=== PATIENT | male | born 1955 | race Caucasian/White ===

== ENCOUNTER → 2018-01-06 | Outpatient (CLI) | payer OTHER ==
[2018-01-06 18:21] LABS: ALBUMIN 4.3 GM/DL (3.2-5.2); ALBUMIN/GLOBULIN RATIO 1.34 (1.00-1.93); ALKALINE PHOSPHATASE 72 U/L (45-117); ALT/SGPT 37 U/L (12-78); ANION GAP 9 MEQ/L (8-16); AST/SGOT 24 U/L (7-37); BILIRUBIN,TOTAL 0.8 MG/DL (0.2-1.0); BLOOD UREA NITROGEN 17 MG/DL (7-18); C REACTIVE PROTEIN QUANTITATIV 6.12 MG/DL (0.00-0.30); CALCIUM LEVEL 9.3 MG/DL (8.8-10.2); CARBON DIOXIDE LEVEL 30 MEQ/L (21-32); CHLORIDE LEVEL 101 MEQ/L (98-107); GLOMERULAR FILTRATION RATE > 60.0 (>49); GLUCOSE, FASTING 93 MG/DL (70-100); POTASSIUM SERUM 4.4 MEQ/L (3.5-5.1); SODIUM LEVEL 140 MEQ/L (136-145); TOTAL PROTEIN 7.5 GM/DL (6.4-8.2)
[2018-01-06 18:47] LABS: BASO % 0.5 % (0.0-1.0); EOS # 0.1 10^3/uL (0.0-0.50); EOS % 0.8 % (0.0-3.0); HEMATOCRIT 46.8 % (42.0-52.0); HEMOGLOBIN 15.3 g/dl (13.5-17.5); IMMATURE GRANULOCYTE % 0.3 % (0-3.0); LYMPH # 1.3 10^3/uL (1.5-4.5); MEAN CORPUSCULAR HEMOGLOBIN 30.1 pg (27.0-33.0); MEAN CORPUSCULAR HGB CONC 32.7 g/dl (32.0-36.5); MEAN CORPUSCULAR VOLUME 92.1 fl (80.0-96.0); MONO % 12.5 % (0.0-5.0); NEUTROPHILS # 5.5 10^3/uL (1.8-7.7); NEUTROPHILS % 69.9 % (36.0-66.0); PLATELET COUNT, AUTOMATED 185 10^3/uL (150-450); RED BLOOD COUNT 5.08 10^6/uL (4.30-6.10); WHITE BLOOD COUNT 7.8 10^3/uL (4.0-10.0)
[2018-01-06 19:38] LABS: ERYTHROCYTE SEDIMENTATION RATE 3 mm/hr (0-20)
== END ==
LOC: M WUC 10:23
DX: R50.9 Fever, unspecified (principal); R21 Rash and other nonspecific skin eruption
CPT/HCPCS: 80053

== ENCOUNTER → 2018-01-14 | Outpatient (CLI) | payer OTHER ==
[2018-01-17 17:40] LABS: Lyme Disease IgG Ab 18 kDa Ban Absent (.); Lyme Disease IgG Ab 23 kDa Ban Absent (.); Lyme Disease IgG Ab 28 kDa Ban Absent (.); Lyme Disease IgG Ab 30 kDa Ban Absent (.); Lyme Disease IgG Ab 39 kDa Ban Absent (.); Lyme Disease IgG Ab 41 kDa Ban Present (.); Lyme Disease IgG Ab 45 kDa Ban Absent (.); Lyme Disease IgG Ab 58 kDa Ban Absent (.); Lyme Disease IgG Ab 66 kDa Ban Absent (.); Lyme Disease IgG Ab 93 kDa Ban Absent (.); Lyme Disease IgG West Blot Int Negative (.); Lyme Disease IgM Ab 23 kDa Ban Present (.); Lyme Disease IgM Ab 39 kDa Ban Absent (.); Lyme Disease IgM Ab 41 kDa Ban Present (.); Lyme Disease IgM Ab Quantitati 3.21 index (0.00-0.79); Lyme Disease IgM West Blot Int Positive (.)
[2018-01-17 17:40] LABS: Lyme Disease IgG/IgM Antibodie 0.92 ISR (0.00-0.90)
== END ==
LOC: M WUC 15:54
DX: R50.9 Fever, unspecified (principal); R21 Rash and other nonspecific skin eruption
CPT/HCPCS: 36415

== ENCOUNTER → 2020-12-15 | Outpatient (REF) | payer MEDICARE | LOC: M SMT 08:56 | PROVIDERS: ATTEND Urology | DX: R97.20 Elevated prostate specific antigen [PSA] (principal) | CPT/HCPCS: 55700; 76942; G0416 ==

== ENCOUNTER → 2021-01-27 | Outpatient (CLI) | payer MEDICARE ==
[~2021-01-27] MED LIST: ACET-683 PO; AMLO1TAB24 PO; ATOR1TAB19 PO; CASO50TA5 PO; D31000TA2 PO; DOXA1TAB41 PO; DOXA2TAB3 PO; HYDR-3490 PO; ISOVUE-370 76% 100ML VIAL As Ordered ONE; KP F1200 PO; ONETAB9 PO; OXYB5TAB10 PO
--- NOTE | 2021-01-27 11:33 | REP ---
INDICATION: PROSTATE CA COMPARISON: None. TECHNIQUE: Standard helical technique after the intravenous administration of 100 cc Isovue 370 FINDINGS: There is no mediastinal or hilar adenopathy. There are no pleural or pericardial effusions. The bone window technique throughout the examination shows multiple tiny focal areas of increased bony density. Evaluation of the lung browne shows a 6 mm sized pleural base nodule in the right lower lobe. There is a 6 mm size nodule which is intra fissural in the left lower lung zone between the antral basal segment of the left lower lobe and the inferior lingula. Within the inferior lingula there is a 4 mm size nodule. IMPRESSION: 1. Multiple lung nodules as described above. Since the patient has a known malignancy short-term follow-up is suggested. There is no revised Fleischner society criteria on the recommendation for follow-up of such nodules in patients with known malignancies. 2. Evidence of tiny blastic osseous foci as described above. 3. All interested parties reviewing this report should also review the report from the CT examination of the abdomen and pelvis obtained at the same time. <Electronically signed by Manny Redmond > 01/27/21 [id number]
== END ==
LOC: M RAD 09:56
PROVIDERS: ATTEND Internal Medicine Medical Oncology
DX: C61 Malignant neoplasm of prostate (principal); R91.8 Other nonspecific abnormal finding of lung field
CPT/HCPCS: 71260; Q9967

== ENCOUNTER → 2021-01-27 | Outpatient (CLI) | payer MEDICARE, OTHER ==
[~2021-01-27] MED LIST changes: -ISOVUE-370 76% 100ML VIAL As Ordered ONE
--- NOTE | 2021-01-27 11:15 | REP ---
INDICATION: PROSTATE CA. COMPARISON: None. TECHNIQUE: Standard helical technique after the intravenous administration of 100 cc Isovue 370. No oral bowel preparatory contrast was administered prior to the exam. FINDINGS: The liver, gallbladder, spleen, pancreas, adrenal glands, and right kidney are within normal limits. There is severe left-sided hydronephrosis and hydroureter. There are no nephroliths or definite ureteroliths. Bilateral pelvic phleboliths are noted. A tiny calcification is seen abutting the posterior wall of the distal ureter. There is evidence of increased soft tissue density in the left ureterovesical junction. There are no urinary bladder calcifications. There is no evidence of free fluid or free air. The bowel loops and the mesenteries are within normal limits. Bone window technique throughout the exam shows multiple tiny focal areas of increased bony density throughout the pelvis and lumbar spine. IMPRESSION: 1. Severe left-sided hydronephrosis as described above. There is a suspicious finding of increased density seen along the floor of the urinary bladder particularly in the region of the left ureterovesical junction. A tumor cannot be ruled out. 2. 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 Correlation with bone scintigraphy should be considered. 3. Other findings as described above. <Electronically signed by Manny Redmond > 01/27/21 1111
== END ==
LOC: M RAD 09:51
PROVIDERS: ATTEND Urology
DX: C61 Malignant neoplasm of prostate (principal); N13.30 Unspecified hydronephrosis

== ENCOUNTER → 2021-02-01 | Outpatient (CLI) | payer MEDICARE ==
--- NOTE | 2021-02-01 15:01 | REP ---
INDICATION: PROSTATE CA. COMPARISON: None. TECHNIQUE/RADIOTRACER AND DOSE: After the intravenous administration of 22 mCi of technetium 99 M MDP a total body bone scan was obtained. FINDINGS: There is patchy increased activity seen in the shoulders. There is degenerative type activity seen in the knees right greater than left. Degenerative type uptake patterns are seen in the ankles and feet. There is focal activity in the anterior right 6th rib. There is focal activity seen in the left 5th rib. There is focal activity seen in the posterior left hemipelvis. There is focal activity seen in the left anterior hip. There is focal activity seen in the region of the pedicle of L5 on the right and L2 on the left. IMPRESSION: Multiple areas of abnormal focal activity, as described above, consistent with metastatic disease. Other areas of patchy uptake and degenerative uptake are consistent with degenerative changes. Follow-up, however, is suggested. <Electronically signed by Manny Redmond > 02/01/21 4253
== END ==
LOC: M RAD 10:33
PROVIDERS: ATTEND Urology
DX: C61 Malignant neoplasm of prostate (principal)
CPT/HCPCS: 78306; A9503

== ENCOUNTER → 2021-04-06 | Outpatient (CLI) | payer MEDICARE ==
[~2021-04-06] MED LIST changes: +ASPI-1 PO; +ASPI81CH33 PO; +BERBERINE PO; +PRED5TA PO; +PYRI1TAB5 PO; +XTAN40CA PO; +ZYTI250T PO
== END ==
LOC: M LABSMTC 10:08
PROVIDERS: ATTEND Anesthesiology
DX: Z01.812 Encounter for preprocedural laboratory examination (principal); Z20.822 Contact with and (suspected) exposure to COVID-19

== ENCOUNTER 2021-04-07 09:46 | Day surgery (SDC) | payer MEDICARE ==
[~2021-04-07] VITALS: Ht 180.3 cm; Wt 115.2 kg
[~2021-04-07 09:46] MED LIST changes: +CIPROFLOXACIN 400 MG in IV 1 EA IV ONE; +LR 1,000 ML IV SCH; -PYRI1TAB5 PO
[2021-04-07] MEDS ORDERED: MIDAZOLAM INJ 2MG/2ML VIAL (J2250 PER 1MG) As Ordered ONE (11:30)
[2021-04-07] MEDS ORDERED: LIDOCAINE 2% 100MG/5ML SDV (FOR ANES.) As Ordered ONE (11:30)
[2021-04-07] MEDS ORDERED: fentaNYL 100 MCG/2 ML INJECTION (J3010) As Ordered ONE (11:30)
[2021-04-07] MEDS ORDERED: propofoL 200 MG/20 ML VIAL As Ordered ONE ×2 (11:30→12:09)
[2021-04-07] MEDS ORDERED: CONRAY-60 60% 50ML VIAL (Q9961) As Ordered ONE (11:47)
[2021-04-07] MEDS ORDERED: PYRI1TAB5 PO (11:48)
[2021-04-07] MEDS ORDERED: OXYB5TAB10 PO (11:48)
[2021-04-07 13:05] VITALS: BP 156/80
[2021-04-07] MEDS ORDERED: METOCLOPRAMIDE INJ 10MG/2ML VIAL (J2765 PER 1) IV PRN (13:05)
[2021-04-07] MEDS ORDERED: fentaNYL 100 MCG/2 ML INJECTION (J3010) IV PRN (13:05)
[2021-04-07] MEDS ORDERED: PERCOCET 5MG/325MG TAB PO PRN (13:05)
[2021-04-07] MEDS ORDERED: LR 1,000 ML IV SCH (13:05)
[2021-04-07] MEDS ORDERED: ONDANSETRON 4MG/2ML VIAL IV PRN (13:05)
== END 2021-04-07 13:13 | disposition home or self-care (01) ==
LOC: M SDC 09:46
PROVIDERS: ATTEND Urology
DX: N13.0 Hydronephrosis with ureteropelvic junction obstruction (principal); I10 Essential (primary) hypertension; E78.5 Hyperlipidemia, unspecified; C79.82 Secondary malignant neoplasm of genital organs; R97.20 Elevated prostate specific antigen [PSA]; Z88.0 Allergy status to penicillin; Z79.82 Long term (current) use of aspirin; Z79.899 Other long term (current) drug therapy
CPT/HCPCS: 52332; 74420; C1769; C2617; J0744; J2250; J3010; Q9961

== ENCOUNTER → 2021-06-22 | Outpatient (CLI) | payer MEDICARE ==
[~2021-06-22] MED LIST changes: -CIPROFLOXACIN 400 MG in IV 1 EA IV ONE; -D31000TA2 PO; -LR 1,000 ML IV SCH; +PYRI1TAB5 PO; +VITA100093 PO
== END ==
LOC: M LABSMTC 09:43
PROVIDERS: ATTEND Anesthesiology
DX: Z11.52 Encounter for screening for COVID-19 (principal); Z20.822 Contact with and (suspected) exposure to COVID-19

== ENCOUNTER 2021-06-27 06:11 | Day surgery (SDC) | payer MEDICARE ==
[~2021-06-27] VITALS: Ht 180.3 cm; Wt 113.6 kg
[~2021-06-27 06:11] MED LIST changes: +CIPROFLOXACIN 400 MG in IV 1 EA IV ONE; +LIDOCAINE 1% MDV 20ML VIAL SQ PRN; +LR 1,000 ML IV ONE
[2021-06-27] MEDS ORDERED: CONRAY-60 60% 50ML VIAL (Q9961) As Ordered ONE (07:13)
[2021-06-27] MEDS ORDERED: dexameTHASONE 4 MG/ML 1ML VIAL (J1100 PER 1MG) As Ordered ONE (07:16)
[2021-06-27] MEDS ORDERED: METOCLOPRAMIDE INJ 10MG/2ML VIAL (J2765 PER 1) As Ordered ONE (07:16)
[2021-06-27] MEDS ORDERED: propofoL 200 MG/20 ML VIAL As Ordered ONE (07:16)
[2021-06-27] MEDS ORDERED: ONDANSETRON 4MG/2ML VIAL As Ordered ONE (07:16)
[2021-06-27] MEDS ORDERED: LIDOCAINE 2% 100MG/5ML SDV (FOR ANES.) As Ordered ONE (07:16)
[2021-06-27] MEDS ORDERED: MIDAZOLAM INJ 2MG/2ML VIAL (J2250 PER 1MG) As Ordered ONE (07:17)
[2021-06-27] MEDS ORDERED: fentaNYL 100 MCG/2 ML INJECTION As Ordered ONE (07:17)
[2021-06-27] MEDS ORDERED: KETOROLAC 60MG 2ML VIAL As Ordered ONE (08:06)
[2021-06-27] MEDS ORDERED: PROMETHAZINE 25MG/ML 1ML VIAL IV PRN (08:30)
[2021-06-27] MEDS ORDERED: LR 1,000 ML IV SCH (08:30)
[2021-06-27] MEDS ORDERED: ONDANSETRON 4MG/2ML VIAL IV PRN (08:30)
[2021-06-27] MEDS ORDERED: HYDROMORPHONE HCL 0.5 MG/ 0.5 ML SYRINGE (J1170 PER 1) IV PRN (08:30)
[2021-06-27] MEDS ORDERED: PERCOCET 5MG/325MG TAB PO PRN (08:30)
[2021-06-27] MEDS ORDERED: MEPERIDINE INJ 25 MG/ML VIAL (J2175) IV PRN (08:30)
[2021-06-27] MEDS ORDERED: LABETALOL 100MG/20ML VIAL IV PRN (08:35)
[2021-06-27] MEDS ORDERED: hydrALAZINE 20MG/ML 1ML VIAL (J0360 PER 20MG) IV PRN (08:35)
[2021-06-27 09:10] VITALS: BP 152/82
== END 2021-06-27 09:14 | disposition home or self-care (01) ==
LOC: M SDC 06:11
PROVIDERS: ATTEND Urology
DX: N13.8 Other obstructive and reflux uropathy (principal); C61 Malignant neoplasm of prostate; I10 Essential (primary) hypertension; E78.5 Hyperlipidemia, unspecified; Z88.0 Allergy status to penicillin; Z79.899 Other long term (current) drug therapy; Z79.82 Long term (current) use of aspirin
CPT/HCPCS: 52332; 74420; C1769; C2617; J1100; J1885; J2250; J2405; J2765; J3010; Q9961

== ENCOUNTER → 2021-07-13 | Outpatient (CLI) | payer MEDICARE ==
[~2021-07-13] MED LIST changes: -CIPROFLOXACIN 400 MG in IV 1 EA IV ONE; -LIDOCAINE 1% MDV 20ML VIAL SQ PRN; -LR 1,000 ML IV ONE
== END ==
LOC: M LABSMTC 09:38
PROVIDERS: ATTEND Family Medicine
DX: Z20.822 Contact with and (suspected) exposure to COVID-19 (principal)
CPT/HCPCS: 87426; C9803

== ENCOUNTER → 2021-07-22 | Outpatient (CLI) | payer MEDICARE ==
[~2021-07-22] MED LIST changes: +GASTROGRAFIN SOLUTION 30ML (Q9963) As Ordered ONE; +ISOVUE-370 76% 100ML VIAL As Ordered ONE
== END ==
LOC: M RAD 08:00
PROVIDERS: ATTEND Internal Medicine Medical Oncology
DX: C61 Malignant neoplasm of prostate (principal)
CPT/HCPCS: 71260; Q9963; Q9967

== ENCOUNTER → 2021-09-12 | Outpatient (REF) | payer MEDICARE ==
[~2021-09-12] MED LIST changes: -GASTROGRAFIN SOLUTION 30ML (Q9963) As Ordered ONE; -ISOVUE-370 76% 100ML VIAL As Ordered ONE
[2021-09-12 12:27] LABS: BASO % 0.8 % (0.0-1.0); EOS # 0.1 10^3/uL (0.0-0.5); EOS % 2.7 % (0.0-3.0); HEMATOCRIT 40.7 % (42.0-52.0); HEMOGLOBIN 13.3 g/dl (13.5-17.5); LYMPH # 1.7 10^3/uL (1.5-5.0); LYMPH % 32.5 % (24.0-44.0); MEAN CORPUSCULAR HEMOGLOBIN 29.8 pg (27.0-33.0); MEAN CORPUSCULAR HGB CONC 32.7 g/dl (32.0-36.5); MEAN CORPUSCULAR VOLUME 91.3 fl (80.0-96.0); MONO # 0.5 10^3/uL (0.0-0.8); MONO % 8.6 % (2.0-8.0); NEUTROPHILS # 2.9 10^3/uL (1.5-8.5); NEUTROPHILS % 55.2 % (36.0-66.0); PLATELET COUNT, AUTOMATED 181 10^3/uL (150-450); RED BLOOD COUNT 4.46 10^6/uL (4.30-6.10); WHITE BLOOD COUNT 5.2 10^3/uL (4.0-10.0)
[2021-09-12 13:03] LABS: ALBUMIN 3.6 GM/DL (3.2-5.2); BILIRUBIN,TOTAL 0.5 MG/DL (0.2-1.0); CREATININE FOR GFR 1.37 MG/DL (0.70-1.30); POTASSIUM SERUM 4.2 MEQ/L (3.5-5.1); PROSTATIC SPECIFIC AG MONITOR 8.01 NG/ML (< 4.00); TOTAL PROTEIN 6.8 GM/DL (6.4-8.2)
== END ==
LOC: M LABDRAWC 11:33
PROVIDERS: ATTEND Internal Medicine Medical Oncology
DX: C61 Malignant neoplasm of prostate (principal)

== ENCOUNTER → 2022-01-01 | Outpatient (CLI) | payer MEDICARE ==
[~2022-01-01] MED LIST changes: +LEUP1INJ4 SC
== END ==
LOC: M LABSMTC 11:02
PROVIDERS: ATTEND Anesthesiology
DX: Z01.812 Encounter for preprocedural laboratory examination (principal); Z20.822 Contact with and (suspected) exposure to COVID-19

== ENCOUNTER 2022-01-05 07:54 | Day surgery (SDC) | payer MEDICARE ==
[~2022-01-05] VITALS: Ht 180.3 cm; Wt 112.9 kg
[~2022-01-05 07:54] MED LIST changes: +LIDOCAINE 2% 100MG/5ML SDV (FOR ANES.) As Ordered ONE; +MIDAZOLAM INJ 2MG/2ML VIAL (J2250 PER 1MG) As Ordered ONE; +ONDANSETRON 4MG 2ML VIAL As Ordered ONE; +fentaNYL 100 MCG/2 ML INJECTION As Ordered ONE; +propofoL 200 MG/20 ML VIAL As Ordered ONE
[2022-01-05] MEDS ORDERED: LR 1,000 ML IV SCH (08:30)
[2022-01-05] MEDS ORDERED: ISOVUE-300 61% 50ML VIAL As Ordered ONE (08:43)
[2022-01-05] MEDS ORDERED: CIPROFLOXACIN 400 MG in IV 1 EA IV ONE (08:55)
[2022-01-05] MEDS ORDERED: ACETAMINOPHEN 1000MG 100ML IV BTL (OFIRMEV) (J0131 PER 10MG) As Ordered ONE (09:18)
[2022-01-05] MEDS ORDERED: MACR100C43 PO (09:38)
[2022-01-05 09:48] VITALS: BP 141/79
[2022-01-06] MEDS ORDERED: UNRESOLVED CLARIFICATION ENTRY XX SCH (00:01)
== END 2022-01-05 10:04 | disposition home or self-care (01) ==
LOC: M SDC 07:54
PROVIDERS: ATTEND Urology
DX: C61 Malignant neoplasm of prostate (principal); N28.89 Other specified disorders of kidney and ureter; N13.2 Hydronephrosis with renal and ureteral calculous obstruction; I10 Essential (primary) hypertension; E78.5 Hyperlipidemia, unspecified; Z88.0 Allergy status to penicillin; Z79.899 Other long term (current) drug therapy
CPT/HCPCS: 52332; 74420; C1769; C2617; J0131; J2250; J2405; J3010; Q9967

== ENCOUNTER → 2022-02-01 | Outpatient (REF) | payer MEDICARE ==
[~2022-02-01] MED LIST changes: -LIDOCAINE 2% 100MG/5ML SDV (FOR ANES.) As Ordered ONE; +MACR100C43 PO; -MIDAZOLAM INJ 2MG/2ML VIAL (J2250 PER 1MG) As Ordered ONE; -ONDANSETRON 4MG 2ML VIAL As Ordered ONE; -fentaNYL 100 MCG/2 ML INJECTION As Ordered ONE; -propofoL 200 MG/20 ML VIAL As Ordered ONE
[2022-02-01 12:30] LABS: BASO % 0.7 % (0.0-1.0); EOS # 0.1 10^3/uL (0.0-0.5); EOS % 2.2 % (0.0-3.0); HEMATOCRIT 41.4 % (42.0-52.0); HEMOGLOBIN 13.3 g/dl (13.5-17.5); LYMPH # 1.6 10^3/uL (1.5-5.0); MEAN CORPUSCULAR HEMOGLOBIN 29.9 pg (27.0-33.0); MEAN CORPUSCULAR HGB CONC 32.1 g/dl (32.0-36.5); MONO # 0.5 10^3/uL (0.0-0.8); MONO % 9.2 % (2.0-8.0); NEUTROPHILS # 3.3 10^3/uL (1.5-8.5); NEUTROPHILS % 59.7 % (36.0-66.0); PLATELET COUNT, AUTOMATED 173 10^3/uL (150-450); RED BLOOD COUNT 4.45 10^6/uL (4.30-6.10); WHITE BLOOD COUNT 5.5 10^3/uL (4.0-10.0)
[2022-02-01 13:24] LABS: ALBUMIN 3.7 GM/DL (3.2-5.2); BILIRUBIN,TOTAL 0.6 MG/DL (0.2-1.0); CALCIUM LEVEL 9.6 MG/DL (8.8-10.2); CREATININE FOR GFR 1.38 MG/DL (0.70-1.30); GLOMERULAR FILTRATION RATE 54.5 (>49); PROSTATIC SPECIFIC AG MONITOR 7.15 NG/ML (< 4.00); TOTAL PROTEIN 7.1 GM/DL (6.4-8.2)
== END ==
LOC: M LABDRAWC 11:15
PROVIDERS: ATTEND Internal Medicine Medical Oncology
DX: C61 Malignant neoplasm of prostate (principal)

== ENCOUNTER → 2022-05-02 | Outpatient (REF) | payer MEDICARE ==
[2022-05-02 17:50] LABS: BASO # 0.1 10^3/uL (0.0-0.2); EOS # 0.2 10^3/uL (0.0-0.5); EOS % 2.9 % (0.0-3.0); HEMATOCRIT 40.6 % (42.0-52.0); HEMOGLOBIN 13.3 g/dl (13.5-17.5); LYMPH # 1.9 10^3/uL (1.5-5.0); MEAN CORPUSCULAR HEMOGLOBIN 29.7 pg (27.0-33.0); MEAN CORPUSCULAR HGB CONC 32.8 g/dl (32.0-36.5); MEAN CORPUSCULAR VOLUME 90.6 fl (80.0-96.0); MONO # 0.5 10^3/uL (0.0-0.8); MONO % 9.7 % (2.0-8.0); NEUTROPHILS # 2.6 10^3/uL (1.5-8.5); NEUTROPHILS % 49.2 % (36.0-66.0); PLATELET COUNT, AUTOMATED 175 10^3/uL (150-450); RED BLOOD COUNT 4.48 10^6/uL (4.30-6.10); WHITE BLOOD COUNT 5.2 10^3/uL (4.0-10.0)
[2022-05-02 18:10] LABS: ALBUMIN 3.7 G/DL (3.2-5.2); CREATININE FOR GFR 1.41 MG/DL (0.70-1.30); GLOMERULAR FILTRATION RATE 53.1 (>49); POTASSIUM SERUM 4.2 MMOL/L (3.5-5.1); PROSTATIC SPECIFIC AG MONITOR 5.62 NG/ML (< 4.00)
== END ==
LOC: M LABDRAWC 16:58
PROVIDERS: ATTEND Internal Medicine Medical Oncology
DX: C61 Malignant neoplasm of prostate (principal)

== ENCOUNTER → 2022-07-21 | Outpatient (REF) | payer MEDICARE ==
[2022-07-21 17:58] LABS: BASO # 0.1 10^3/uL (0.0-0.2); BASO % 0.9 % (0.0-1.0); EOS # 0.1 10^3/uL (0.0-0.5); EOS % 1.6 % (0.0-3.0); HEMATOCRIT 40.4 % (42.0-52.0); HEMOGLOBIN 13.3 g/dl (13.5-17.5); LYMPH # 1.7 10^3/uL (1.5-5.0); LYMPH % 30.6 % (24.0-44.0); MEAN CORPUSCULAR HGB CONC 32.9 g/dl (32.0-36.5); MONO # 0.5 10^3/uL (0.0-0.8); MONO % 8.8 % (2.0-8.0); NEUTROPHILS # 3.2 10^3/uL (1.5-8.5); NEUTROPHILS % 57.9 % (36.0-66.0); PLATELET COUNT, AUTOMATED 194 10^3/uL (150-450); RED BLOOD COUNT 4.44 10^6/uL (4.30-6.10); WHITE BLOOD COUNT 5.6 10^3/uL (4.0-10.0)
[2022-07-21 18:08] LABS: ALBUMIN 3.8 G/DL (3.2-5.2); BILIRUBIN,TOTAL 0.5 MG/DL (0.3-1.2); CALCIUM LEVEL 9.2 MG/DL (8.3-10.6); CREATININE FOR GFR 1.3 MG/DL (0.70-1.30); GLOMERULAR FILTRATION RATE 58.3 (>49); PROSTATIC SPECIFIC AG MONITOR 5.83 NG/ML (< 4.00); TOTAL PROTEIN 7.1 G/DL (5.7-8.2)
== END ==
LOC: M LABDRAWC 17:03
PROVIDERS: ATTEND Internal Medicine Medical Oncology
DX: C61 Malignant neoplasm of prostate (principal)

== ENCOUNTER 2022-07-31 07:24 | Day surgery (SDC) | payer MEDICARE ==
[~2022-07-31] VITALS: Ht 180.3 cm; Wt 118.4 kg
[2022-07-31] MEDS ORDERED: LR 1,000 ML IV SCH ×2 (08:00→09:45)
[2022-07-31] MEDS ORDERED: propofoL 200 MG/20 ML VIAL As Ordered ONE (08:26)
[2022-07-31] MEDS ORDERED: MIDAZOLAM INJ 2MG/2ML VIAL As Ordered ONE (08:26)
[2022-07-31] MEDS ORDERED: LIDOCAINE 2% 100MG/5ML SDV (FOR ANES.) As Ordered ONE (08:26)
[2022-07-31] MEDS ORDERED: ONDANSETRON 4MG 2ML VIAL As Ordered ONE (08:26)
[2022-07-31] MEDS ORDERED: fentaNYL 100 MCG/2 ML INJECTION As Ordered ONE (08:26)
[2022-07-31] MEDS ORDERED: ISOVUE-300 61% 100ML VIAL As Ordered ONE (08:48)
[2022-07-31] MEDS ORDERED: CIPROFLOXACIN 400 MG in IV 1 EA IV ONE (08:50)
[2022-07-31] MEDS ORDERED: ONDANSETRON 4MG 2ML VIAL IV PRN (09:45)
[2022-07-31 10:36] VITALS: BP 152/84
== END 2022-07-31 10:55 | disposition home or self-care (01) ==
LOC: M SDC 07:24
PROVIDERS: ATTEND Urology
DX: N13.0 Hydronephrosis with ureteropelvic junction obstruction (principal); C61 Malignant neoplasm of prostate; I10 Essential (primary) hypertension; E78.5 Hyperlipidemia, unspecified; Z92.21 Personal history of antineoplastic chemotherapy; N40.0 Benign prostatic hyperplasia without lower urinary tract symptoms; Z79.82 Long term (current) use of aspirin; Z79.899 Other long term (current) drug therapy
CPT/HCPCS: 52332; 74420; C1769; C2617; J0744; J1100; J2250; J2405; J3010; Q9967

== ENCOUNTER → 2022-11-08 | Outpatient (REF) | payer MEDICARE ==
[~2022-11-08] MED LIST changes: +B-COTAB10 PO; -DOXA2TAB3 PO; +DOXA2TAB61 PO; +GRAVIOLA PO
[2022-11-08 12:01] LABS: BASO # 0.1 10^3/uL (0.0-0.2); BASO % 0.8 % (0.0-1.0); EOS # 0.2 10^3/uL (0.0-0.5); EOS % 2.1 % (0.0-3.0); HEMATOCRIT 38.4 % (42.0-52.0); HEMOGLOBIN 12.4 g/dl (13.5-17.5); LYMPH # 1.4 10^3/uL (1.5-5.0); LYMPH % 19.6 % (24.0-44.0); MEAN CORPUSCULAR HEMOGLOBIN 29.1 pg (27.0-33.0); MEAN CORPUSCULAR HGB CONC 32.3 g/dl (32.0-36.5); MEAN CORPUSCULAR VOLUME 90.1 fl (80.0-96.0); MONO # 0.5 10^3/uL (0.0-0.8); MONO % 6.4 % (2.0-8.0); NEUTROPHILS # 5.1 10^3/uL (1.5-8.5); NEUTROPHILS % 70.7 % (36.0-66.0); PLATELET COUNT, AUTOMATED 242 10^3/uL (150-450); RED BLOOD COUNT 4.26 10^6/uL (4.30-6.10); WHITE BLOOD COUNT 7.2 10^3/uL (4.0-10.0)
[2022-11-08 12:38] LABS: ALBUMIN 3.2 G/DL (3.2-5.2); ALKALINE PHOSPHATASE 129 U/L (46-116); ALT/SGPT 19 U/L (7.0-40); AST/SGOT 16 U/L (<34); BILIRUBIN,TOTAL 0.6 MG/DL (0.3-1.2); BLOOD UREA NITROGEN 22 MG/DL (9-23); CALCIUM LEVEL 8.8 MG/DL (8.3-10.6); CARBON DIOXIDE LEVEL 26 MMOL/L (20-31); CHLORIDE LEVEL 104 MMOL/L (98-107); CREATININE FOR GFR 1.26 MG/DL (0.70-1.30); GLOMERULAR FILTRATION RATE > 60.0 (>49); GLUCOSE, FASTING 98 MG/DL (74-106); POTASSIUM SERUM 4.4 MMOL/L (3.5-5.1); PROSTATIC SPECIFIC AG MONITOR 6.62 NG/ML (< 4.00); SODIUM LEVEL 139 MMOL/L (136-145); TOTAL PROTEIN 6.8 G/DL (5.7-8.2)
[2022-11-08 12:40] LABS: TESTOSTERONE 15 NG/DL (241-827)
== END ==
LOC: M LABDRAWC 11:31
PROVIDERS: ATTEND Internal Medicine Medical Oncology
DX: C61 Malignant neoplasm of prostate (principal)

== ENCOUNTER → 2022-12-04 | Outpatient (CLI) | payer MEDICARE | LOC: M CARPUL 13:56 | PROVIDERS: ATTEND Internal Medicine Medical Oncology | DX: R01.1 Cardiac murmur, unspecified (principal); I71.21 Aneurysm of the ascending aorta, without rupture; I08.0 Rheumatic disorders of both mitral and aortic valves ==

== ENCOUNTER → 2022-12-12 | Outpatient (CLI) | payer MEDICARE ==
[~2022-12-12] MED LIST changes: +GASTROGRAFIN SOLUTION 30ML As Ordered ONE; +ISOVUE-370 76% 100ML VIAL As Ordered ONE
== END ==
LOC: M RAD 08:24
PROVIDERS: ATTEND Internal Medicine Medical Oncology
DX: C61 Malignant neoplasm of prostate (principal)
CPT/HCPCS: 71260; 74177; 78306; A9503; Q9963; Q9967

== ENCOUNTER 2023-02-12 11:05 | Day surgery (SDC) | payer MEDICARE ==
[~2023-02-12] VITALS: Ht 180.3 cm; Wt 112.7 kg
[~2023-02-12 11:05] MED LIST changes: -GASTROGRAFIN SOLUTION 30ML As Ordered ONE; +ISOVUE-300 61% 100ML VIAL As Ordered ONE; -ISOVUE-370 76% 100ML VIAL As Ordered ONE; +LIDOCAINE 2% 100MG/5ML SDV (FOR ANES.) As Ordered ONE; +MIDAZOLAM INJ 2MG/2ML VIAL As Ordered ONE; +ONDANSETRON 4MG 2ML VIAL As Ordered ONE; -OXYB5TAB10 PO; +OXYB5TAB11 PO; +fentaNYL 100 MCG/2 ML INJECTION As Ordered ONE; +propofoL 200 MG/20 ML VIAL As Ordered ONE
[2023-02-12] MEDS ORDERED: LR 1,000 ML IV SCH ×2 (11:30→12:20)
[2023-02-12] MEDS ORDERED: IBUP200C33 PO (11:34)
[2023-02-12] MEDS ORDERED: CIPROFLOXACIN 400 MG in IV 1 EA IV ONE (11:35)
[2023-02-12] MEDS ORDERED: ACETAMINOPHEN 1000MG 100ML IV BAG As Ordered ONE (12:12)
[2023-02-12] MEDS ORDERED: HYDROMORPHONE HCL 0.5 MG/ 0.5 ML SYRINGE IV PRN (12:20)
[2023-02-12] MEDS ORDERED: oxyCODONE 5MG TAB PO PRN (12:20)
[2023-02-12] MEDS ORDERED: ONDANSETRON 4MG 2ML VIAL IV PRN (12:20)
[2023-02-12] MEDS ORDERED: fentaNYL 100 MCG/2 ML INJECTION IV PRN (12:20)
[2023-02-12] MEDS ORDERED: MACR100C43 PO (12:21)
[2023-02-12 13:15] VITALS: BP 148/71; TEMP 97.7; O2SAT 98
== END 2023-02-12 13:25 | disposition home or self-care (01) ==
LOC: M SDC 11:05
PROVIDERS: ATTEND Urology
DX: N13.1 Hydronephrosis with ureteral stricture, not elsewhere classified (principal); Z79.899 Other long term (current) drug therapy; Z85.46 Personal history of malignant neoplasm of prostate; Z92.21 Personal history of antineoplastic chemotherapy; I10 Essential (primary) hypertension; E78.5 Hyperlipidemia, unspecified; Z88.0 Allergy status to penicillin; Z79.82 Long term (current) use of aspirin
CPT/HCPCS: 52332; 76000; A4215; C1769; C2617; J0131; J0744; J1100; J2250; J2405; J3010; Q9967

== ENCOUNTER → 2023-03-28 | Outpatient (REF) | payer MEDICARE ==
[~2023-03-28] MED LIST changes: +IBUP200C33 PO; -ISOVUE-300 61% 100ML VIAL As Ordered ONE; -LIDOCAINE 2% 100MG/5ML SDV (FOR ANES.) As Ordered ONE; -MIDAZOLAM INJ 2MG/2ML VIAL As Ordered ONE; -ONDANSETRON 4MG 2ML VIAL As Ordered ONE; -fentaNYL 100 MCG/2 ML INJECTION As Ordered ONE; -propofoL 200 MG/20 ML VIAL As Ordered ONE
== END ==
LOC: M LAB REF 17:51
PROVIDERS: ATTEND Internal Medicine Medical Oncology
DX: C61 Malignant neoplasm of prostate (principal)

== ENCOUNTER → 2023-08-14 | Outpatient (REF) | payer MEDICARE ==
[~2023-08-14] MED LIST changes: -OXYB5TAB11 PO; +OXYB5TAB14 PO
[2023-08-14 12:21] LABS: PROSTATIC SPECIFIC AG MONITOR 16.77 NG/ML (< 4.00)
[2023-08-14 12:23] LABS: ALBUMIN 3.5 G/DL (3.2-5.2); BILIRUBIN,TOTAL 0.7 MG/DL (0.3-1.2); CALCIUM LEVEL 8.8 MG/DL (8.3-10.6); CREATININE FOR GFR 1.29 MG/DL (0.70-1.30); GLOMERULAR FILTRATION RATE 58.6 (>42); POTASSIUM SERUM 4.1 MMOL/L (3.5-5.1); TOTAL PROTEIN 7.1 G/DL (5.7-8.2)
[2023-08-14 12:29] LABS: BASO # 0.1 10^3/uL (0.0-0.2); BASO % 0.8 % (0.0-1.0); EOS # 0.2 10^3/uL (0.0-0.5); EOS % 3.4 % (0.0-3.0); HEMATOCRIT 41.6 % (42.0-52.0); HEMOGLOBIN 13.7 g/dl (13.5-17.5); LYMPH # 1.9 10^3/uL (1.5-5.0); LYMPH % 32.4 % (24.0-44.0); MEAN CORPUSCULAR HEMOGLOBIN 29.3 pg (27.0-33.0); MEAN CORPUSCULAR HGB CONC 32.9 g/dl (32.0-36.5); MEAN CORPUSCULAR VOLUME 88.9 fl (80.0-96.0); MONO # 0.5 10^3/uL (0.0-0.8); MONO % 9.1 % (2.0-8.0); NEUTROPHILS # 3.2 10^3/uL (1.5-8.5); NEUTROPHILS % 54.1 % (36.0-66.0); PLATELET COUNT, AUTOMATED 188 10^3/uL (150-450); RED BLOOD COUNT 4.68 10^6/uL (4.30-6.10)
== END ==
LOC: M LABDRAWC 11:37
PROVIDERS: ATTEND Internal Medicine Medical Oncology
DX: C61 Malignant neoplasm of prostate (principal)

== ENCOUNTER → 2023-09-24 | Outpatient (REF) | payer MEDICARE ==
[~2023-09-24] MED LIST changes: +OMEP-173 PO
== END ==
LOC: M SFHCCLAY 09:44
PROVIDERS: ATTEND Urology
DX: N28.89 Other specified disorders of kidney and ureter (principal)

== ENCOUNTER 2023-10-01 09:57 | Day surgery (SDC) | payer MEDICARE ==
[~2023-10-01] VITALS: Ht 180.3 cm; Wt 113.0 kg
[~2023-10-01 09:57] MED LIST changes: +LIDOCAINE 2% 100MG/5ML SDV (FOR ANES.) As Ordered ONE; +ONDANSETRON 4MG 2ML VIAL As Ordered ONE; +propofoL 200 MG/20 ML VIAL As Ordered ONE
[2023-10-01] MEDS ORDERED: fentaNYL 100 MCG/2 ML INJECTION As Ordered ONE (10:11)
[2023-10-01] MEDS ORDERED: MIDAZOLAM INJ 2MG/2ML VIAL As Ordered ONE (10:12)
[2023-10-01] MEDS: ISOVUE-300 61% 100ML VIAL As Ordered ONE (10:43)
[2023-10-01] MEDS ORDERED: LR 1,000 ML IV SCH ×2 (10:55→11:25)
[2023-10-01] MEDS: ceFAZolin SOD 2 GM in IV 1 EA IV ONE (11:04)
[2023-10-01] MEDS ORDERED: ACETAMINOPHEN 1000MG 100ML IV BAG As Ordered ONE (11:13)
[2023-10-01] MEDS ORDERED: ONDANSETRON 4MG 2ML VIAL IV PRN (11:25)
[2023-10-01] MEDS ORDERED: oxyCODONE 5MG TAB PO PRN (11:25)
[2023-10-01] MEDS ORDERED: HYDROMORPHONE HCL 0.5 MG/ 0.5 ML SYRINGE IV PRN (11:25)
[2023-10-01] MEDS ORDERED: fentaNYL 100 MCG/2 ML INJECTION IV PRN (11:25)
[2023-10-01 12:19] VITALS: BP 142/74; TEMP 97.4; O2SAT 98
== END 2023-10-01 12:47 | disposition home or self-care (01) ==
LOC: M SDC 09:57
PROVIDERS: ATTEND Urology
DX: N13.30 Unspecified hydronephrosis (principal); N28.89 Other specified disorders of kidney and ureter; C61 Malignant neoplasm of prostate; I10 Essential (primary) hypertension; E78.5 Hyperlipidemia, unspecified; Z92.21 Personal history of antineoplastic chemotherapy; Z79.899 Other long term (current) drug therapy; Z79.52 Long term (current) use of systemic steroids; Z79.82 Long term (current) use of aspirin; Z88.0 Allergy status to penicillin
CPT/HCPCS: 52332; 76000; C1769; C1894; C2617; J0131; J0690; J1100; J2250; J2405; J3010; Q9967

== ENCOUNTER → 2023-10-08 | Outpatient (REF) | payer MEDICARE ==
[~2023-10-08] MED LIST changes: -LIDOCAINE 2% 100MG/5ML SDV (FOR ANES.) As Ordered ONE; -ONDANSETRON 4MG 2ML VIAL As Ordered ONE; -propofoL 200 MG/20 ML VIAL As Ordered ONE
[2023-10-08 17:46] LABS: BASO % 0.5 % (0.0-1.0); EOS # 0.2 10^3/uL (0.0-0.5); EOS % 2.9 % (0.0-3.0); HEMATOCRIT 41.3 % (42.0-52.0); HEMOGLOBIN 13.7 g/dl (13.5-17.5); LYMPH # 1.6 10^3/uL (1.5-5.0); LYMPH % 21.7 % (24.0-44.0); MEAN CORPUSCULAR HEMOGLOBIN 29.7 pg (27.0-33.0); MEAN CORPUSCULAR HGB CONC 33.2 g/dl (32.0-36.5); MEAN CORPUSCULAR VOLUME 89.4 fl (80.0-96.0); MONO # 0.6 10^3/uL (0.0-0.8); MONO % 8.1 % (2.0-8.0); NEUTROPHILS % 66.5 % (36.0-66.0); PLATELET COUNT, AUTOMATED 213 10^3/uL (150-450); RED BLOOD COUNT 4.62 10^6/uL (4.30-6.10); WHITE BLOOD COUNT 7.5 10^3/uL (4.0-10.0)
[2023-10-08 18:12] LABS: ALBUMIN 3.6 G/DL (3.2-5.2); ALKALINE PHOSPHATASE 88 U/L (46-116); ALT/SGPT 16 U/L (7.0-40); AST/SGOT 8 U/L (<34); BILIRUBIN,TOTAL 0.8 MG/DL (0.3-1.2); BLOOD UREA NITROGEN 27 MG/DL (9-23); CARBON DIOXIDE LEVEL 25 MMOL/L (20-31); CHLORIDE LEVEL 106 MMOL/L (98-107); CREATININE FOR GFR 1.39 MG/DL (0.70-1.30); GLOMERULAR FILTRATION RATE 53.8 (>42); GLUCOSE, FASTING 89 MG/DL (74-106); PROSTATIC SPECIFIC AG MONITOR 8.73 NG/ML (< 4.00); SODIUM LEVEL 137 MMOL/L (136-145); TOTAL PROTEIN 7.1 G/DL (5.7-8.2)
[2023-10-08 18:49] LABS: TESTOSTERONE < 7 NG/DL (241-827)
== END ==
LOC: M LABDRAWC 17:02
PROVIDERS: ATTEND Internal Medicine Medical Oncology
DX: C61 Malignant neoplasm of prostate (principal)

== ENCOUNTER → 2023-11-27 | Outpatient (REF) | payer MEDICARE ==
[2023-11-27 18:17] LABS: BASO % 0.5 % (0.0-1.0); EOS # 0.1 10^3/uL (0.0-0.5); EOS % 1.3 % (0.0-3.0); HEMATOCRIT 41.4 % (42.0-52.0); HEMOGLOBIN 13.6 g/dl (13.5-17.5); LYMPH # 1.3 10^3/uL (1.5-5.0); LYMPH % 20.1 % (24.0-44.0); MEAN CORPUSCULAR HEMOGLOBIN 30.4 pg (27.0-33.0); MEAN CORPUSCULAR HGB CONC 32.9 g/dl (32.0-36.5); MEAN CORPUSCULAR VOLUME 92.4 fl (80.0-96.0); MONO # 0.5 10^3/uL (0.0-0.8); MONO % 7.5 % (2.0-8.0); NEUTROPHILS # 4.4 10^3/uL (1.5-8.5); NEUTROPHILS % 70.3 % (36.0-66.0); PLATELET COUNT, AUTOMATED 218 10^3/uL (150-450); RED BLOOD COUNT 4.48 10^6/uL (4.30-6.10); WHITE BLOOD COUNT 6.3 10^3/uL (4.0-10.0)
[2023-11-27 18:25] LABS: ALBUMIN 3.6 G/DL (3.2-5.2); ALKALINE PHOSPHATASE 78 U/L (46-116); ALT/SGPT 16 U/L (7.0-40); AST/SGOT 14 U/L (<34); BILIRUBIN,TOTAL 0.8 MG/DL (0.3-1.2); BLOOD UREA NITROGEN 22 MG/DL (9-23); CARBON DIOXIDE LEVEL 30 MMOL/L (20-31); CHLORIDE LEVEL 105 MMOL/L (98-107); CREATININE FOR GFR 1.42 MG/DL (0.70-1.30); GLOMERULAR FILTRATION RATE 52.5 (>42); GLUCOSE, FASTING 103 MG/DL (74-106); POTASSIUM SERUM 4.1 MMOL/L (3.5-5.1); PROSTATIC SPECIFIC AG MONITOR 5.07 NG/ML (< 4.00); SODIUM LEVEL 139 MMOL/L (136-145)
[2023-11-27 18:35] LABS: TESTOSTERONE < 7 NG/DL (241-827)
== END ==
LOC: M LABDRAWC 16:59
PROVIDERS: ATTEND Specialist
DX: C61 Malignant neoplasm of prostate (principal)

== ENCOUNTER → 2023-12-25 | Outpatient (REF) | payer MEDICARE ==
[2023-12-25 12:38] LABS: PROSTATIC SPECIFIC AG MONITOR 4.26 NG/ML (< 4.00)
[2023-12-25 12:41] LABS: BASO % 0.6 % (0.0-1.0); EOS # 0.1 10^3/uL (0.0-0.5); EOS % 1.2 % (0.0-3.0); HEMATOCRIT 42.3 % (42.0-52.0); HEMOGLOBIN 14.2 g/dl (13.5-17.5); LYMPH # 1.5 10^3/uL (1.5-5.0); LYMPH % 22.9 % (24.0-44.0); MEAN CORPUSCULAR HEMOGLOBIN 31.1 pg (27.0-33.0); MEAN CORPUSCULAR HGB CONC 33.6 g/dl (32.0-36.5); MEAN CORPUSCULAR VOLUME 92.8 fl (80.0-96.0); MONO # 0.5 10^3/uL (0.0-0.8); MONO % 7.1 % (2.0-8.0); NEUTROPHILS # 4.5 10^3/uL (1.5-8.5); NEUTROPHILS % 67.9 % (36.0-66.0); PLATELET COUNT, AUTOMATED 219 10^3/uL (150-450); RED BLOOD COUNT 4.56 10^6/uL (4.30-6.10); WHITE BLOOD COUNT 6.6 10^3/uL (4.0-10.0)
[2023-12-25 12:42] LABS: ALBUMIN 3.9 G/DL (3.2-5.2); ALKALINE PHOSPHATASE 85 U/L (46-116); ALT/SGPT 17 U/L (7.0-40); AST/SGOT 17 U/L (<34); BILIRUBIN,TOTAL 0.7 MG/DL (0.3-1.2); BLOOD UREA NITROGEN 26 MG/DL (9-23); CALCIUM LEVEL 9.8 MG/DL (8.3-10.6); CARBON DIOXIDE LEVEL 28 MMOL/L (20-31); CHLORIDE LEVEL 105 MMOL/L (98-107); CREATININE FOR GFR 1.29 MG/DL (0.70-1.30); GLOMERULAR FILTRATION RATE 58.6 (>42); GLUCOSE, FASTING 92 MG/DL (74-106); POTASSIUM SERUM 4.1 MMOL/L (3.5-5.1); SODIUM LEVEL 139 MMOL/L (136-145); TOTAL PROTEIN 7.3 G/DL (5.7-8.2)
[2023-12-25 12:47] LABS: TESTOSTERONE < 7 NG/DL (241-827)
== END ==
LOC: M LABDRAWC 11:46
PROVIDERS: ATTEND Internal Medicine Medical Oncology
DX: C61 Malignant neoplasm of prostate (principal)

== ENCOUNTER → 2024-01-22 | Outpatient (REF) | payer MEDICARE ==
[2024-01-22 12:38] LABS: BASO # 0.1 10^3/uL (0.0-0.2); BASO % 0.9 % (0.0-1.0); EOS # 0.1 10^3/uL (0.0-0.5); EOS % 1.9 % (0.0-3.0); HEMATOCRIT 41.5 % (42.0-52.0); HEMOGLOBIN 13.7 g/dl (13.5-17.5); LYMPH # 1.6 10^3/uL (1.5-5.0); LYMPH % 28.7 % (24.0-44.0); MEAN CORPUSCULAR VOLUME 90.8 fl (80.0-96.0); MONO # 0.6 10^3/uL (0.0-0.8); MONO % 10.2 % (2.0-8.0); NEUTROPHILS # 3.3 10^3/uL (1.5-8.5); NEUTROPHILS % 57.8 % (36.0-66.0); PLATELET COUNT, AUTOMATED 221 10^3/uL (150-450); RED BLOOD COUNT 4.57 10^6/uL (4.30-6.10); WHITE BLOOD COUNT 5.7 10^3/uL (4.0-10.0)
[2024-01-22 13:03] LABS: PROSTATIC SPECIFIC AG MONITOR 3.74 NG/ML (< 4.00)
[2024-01-22 13:06] LABS: ALBUMIN 3.6 G/DL (3.2-5.2); ALKALINE PHOSPHATASE 73 U/L (40-129); ALT/SGPT 18 U/L (7.0-40); AST/SGOT 12 U/L (<34); BILIRUBIN,TOTAL 0.7 MG/DL (0.3-1.2); BLOOD UREA NITROGEN 19 MG/DL (9-23); CALCIUM LEVEL 9.6 MG/DL (8.3-10.6); CARBON DIOXIDE LEVEL 28 MMOL/L (20-31); CHLORIDE LEVEL 107 MMOL/L (98-107); CREATININE FOR GFR 1.16 MG/DL (0.70-1.30); GLOMERULAR FILTRATION RATE > 60.0 (>42); GLUCOSE, FASTING 92 MG/DL (74-106); POTASSIUM SERUM 4.3 MMOL/L (3.5-5.1); SODIUM LEVEL 140 MMOL/L (136-145)
== END ==
LOC: M LABDRAWC 11:47
PROVIDERS: ATTEND Internal Medicine Medical Oncology
DX: C61 Malignant neoplasm of prostate (principal)

== ENCOUNTER → 2024-02-19 | Outpatient (REF) | payer MEDICARE ==
[2024-02-19 18:45] LABS: BASO # 0.1 10^3/uL (0.0-0.2); BASO % 0.8 % (0.0-1.0); EOS # 0.1 10^3/uL (0.0-0.5); EOS % 0.8 % (0.0-3.0); HEMATOCRIT 40.4 % (42.0-52.0); HEMOGLOBIN 13.5 g/dl (13.5-17.5); LYMPH # 1.2 10^3/uL (1.5-5.0); MEAN CORPUSCULAR HEMOGLOBIN 30.5 pg (27.0-33.0); MEAN CORPUSCULAR HGB CONC 33.4 g/dl (32.0-36.5); MEAN CORPUSCULAR VOLUME 91.4 fl (80.0-96.0); MONO # 0.5 10^3/uL (0.0-0.8); MONO % 8.9 % (2.0-8.0); NEUTROPHILS # 4.1 10^3/uL (1.5-8.5); PLATELET COUNT, AUTOMATED 189 10^3/uL (150-450); RED BLOOD COUNT 4.42 10^6/uL (4.30-6.10); WHITE BLOOD COUNT 6.1 10^3/uL (4.0-10.0)
[2024-02-19 19:13] LABS: ALBUMIN 3.6 G/DL (3.2-5.2); ALKALINE PHOSPHATASE 65 U/L (40-129); ALT/SGPT 17 U/L (7.0-40); AST/SGOT 11 U/L (<34); BILIRUBIN,TOTAL 0.8 MG/DL (0.3-1.2); BLOOD UREA NITROGEN 24 MG/DL (9-23); CALCIUM LEVEL 9.3 MG/DL (8.3-10.6); CARBON DIOXIDE LEVEL 26 MMOL/L (20-31); CHLORIDE LEVEL 105 MMOL/L (98-107); CREATININE FOR GFR 1.22 MG/DL (0.70-1.30); GLOMERULAR FILTRATION RATE > 60.0 (>42); GLUCOSE, FASTING 92 MG/DL (74-106); POTASSIUM SERUM 4.5 MMOL/L (3.5-5.1); PROSTATIC SPECIFIC AG MONITOR 2.87 NG/ML (< 4.00); SODIUM LEVEL 139 MMOL/L (136-145)
[2024-02-19 19:18] LABS: TESTOSTERONE < 7 NG/DL (241-827)
== END ==
LOC: M LABDRAWC 16:49
PROVIDERS: ATTEND Internal Medicine Medical Oncology
DX: C61 Malignant neoplasm of prostate (principal)

== ENCOUNTER → 2024-03-31 | Outpatient (REF) | payer MEDICARE | LOC: M SFHCCLAY 11:11 | PROVIDERS: ATTEND Urology | DX: C61 Malignant neoplasm of prostate (principal); Z79.899 Other long term (current) drug therapy ==

== ENCOUNTER 2024-04-07 09:48 | Day surgery (SDC) | payer MEDICARE ==
[~2024-04-07] VITALS: Ht 180.3 cm; Wt 113.8 kg
[2024-04-07] MEDS: NS (Normal Saline) 0.9% 1,000 ML IV SCH (10:40)
[2024-04-07] MEDS ORDERED: LIDOCAINE 2% 100MG/5ML SDV (FOR ANES.) As Ordered ONE (11:03)
[2024-04-07] MEDS ORDERED: propofoL 200 MG/20 ML VIAL As Ordered ONE (11:03)
[2024-04-07] MEDS ORDERED: ONDANSETRON 4MG 2ML VIAL As Ordered ONE (11:03)
[2024-04-07] MEDS ORDERED: ACETAMINOPHEN 1000MG/100ML IV BAG As Ordered ONE (11:03)
[2024-04-07] MEDS ORDERED: fentaNYL 100 MCG/2 ML INJECTION As Ordered ONE (11:22)
[2024-04-07] MEDS: ceFAZolin SOD 2 GM in IV 1 EA IV ONE (11:35)
[2024-04-07] MEDS: ISOVUE-300 61% 100ML VIAL As Ordered ONE (12:05)
[2024-04-07] MEDS ORDERED: fentaNYL 100 MCG/2 ML INJECTION IV PRN (12:20)
[2024-04-07] MEDS ORDERED: oxyCODONE 5MG TAB PO PRN (12:20)
[2024-04-07] MEDS ORDERED: ONDANSETRON 4MG 2ML VIAL IV PRN (12:20)
[2024-04-07 12:53] VITALS: BP 149/88; TEMP 96.9; O2SAT 96
[2024-05-05] MEDS ORDERED: ZYTI250T PO (11:04)
[2024-05-05] MEDS ORDERED: PRED5TA PO (11:04)
== END 2024-04-07 13:12 | disposition home or self-care (01) ==
LOC: M SDC 09:48
PROVIDERS: ATTEND Urology
DX: N13.5 Crossing vessel and stricture of ureter without hydronephrosis (principal); C61 Malignant neoplasm of prostate; C79.9 Secondary malignant neoplasm of unspecified site; I10 Essential (primary) hypertension; E78.00 Pure hypercholesterolemia, unspecified; Z79.899 Other long term (current) drug therapy; Z79.82 Long term (current) use of aspirin; Z92.21 Personal history of antineoplastic chemotherapy; R01.1 Cardiac murmur, unspecified
CPT/HCPCS: 52332; 52351; 76000; C1769; C2617; J0131; J0690; J1100; J2405; J3010; Q9967

== ENCOUNTER → 2024-04-14 | Outpatient (REF) | payer MEDICARE ==
[2024-04-14 17:58] LABS: BASO % 0.4 % (0.0-1.0); EOS # 0.1 10^3/uL (0.0-0.5); EOS % 1.4 % (0.0-3.0); HEMATOCRIT 42.7 % (42.0-52.0); HEMOGLOBIN 13.8 g/dl (13.5-17.5); LYMPH # 1.3 10^3/uL (1.5-5.0); LYMPH % 17.9 % (24.0-44.0); MEAN CORPUSCULAR HEMOGLOBIN 29.4 pg (27.0-33.0); MEAN CORPUSCULAR HGB CONC 32.3 g/dl (32.0-36.5); MONO # 0.5 10^3/uL (0.0-0.8); MONO % 7.4 % (2.0-8.0); NEUTROPHILS # 5.2 10^3/uL (1.5-8.5); NEUTROPHILS % 72.6 % (36.0-66.0); PLATELET COUNT, AUTOMATED 189 10^3/uL (150-450); RED BLOOD COUNT 4.69 10^6/uL (4.30-6.10); WHITE BLOOD COUNT 7.2 10^3/uL (4.0-10.0)
[2024-04-14 18:30] LABS: ALBUMIN 3.7 G/DL (3.2-5.2); ALKALINE PHOSPHATASE 55 U/L (40-129); ALT/SGPT 15 U/L (7.0-40); AST/SGOT 14 U/L (<34); BILIRUBIN,TOTAL 0.6 MG/DL (0.3-1.2); BLOOD UREA NITROGEN 30 MG/DL (9-23); CALCIUM LEVEL 9.2 MG/DL (8.3-10.6); CARBON DIOXIDE LEVEL 27 MMOL/L (20-31); CHLORIDE LEVEL 105 MMOL/L (98-107); GLOMERULAR FILTRATION RATE 53.2 (>42); GLUCOSE, FASTING 97 MG/DL (74-106); POTASSIUM SERUM 4.1 MMOL/L (3.5-5.1); PROSTATIC SPECIFIC AG MONITOR 2.04 NG/ML (< 4.00); SODIUM LEVEL 141 MMOL/L (136-145)
[2024-04-14 18:33] LABS: TESTOSTERONE < 7 NG/DL (241-827)
== END ==
LOC: M LABDRAWC 16:40
PROVIDERS: ATTEND Internal Medicine Medical Oncology
DX: C61 Malignant neoplasm of prostate (principal)

== ENCOUNTER → 2024-05-15 | Outpatient (REF) | payer MEDICARE ==
[2024-05-15 18:07] LABS: BASO % 0.5 % (0.0-1.0); EOS % 0.6 % (0.0-3.0); HEMATOCRIT 41.1 % (42.0-52.0); HEMOGLOBIN 13.9 g/dl (13.5-17.5); LYMPH # 1.1 10^3/uL (1.5-5.0); LYMPH % 17.9 % (24.0-44.0); MEAN CORPUSCULAR HEMOGLOBIN 30.5 pg (27.0-33.0); MEAN CORPUSCULAR HGB CONC 33.8 g/dl (32.0-36.5); MEAN CORPUSCULAR VOLUME 90.1 fl (80.0-96.0); MONO # 0.5 10^3/uL (0.0-0.8); MONO % 7.5 % (2.0-8.0); NEUTROPHILS # 4.7 10^3/uL (1.5-8.5); NEUTROPHILS % 73.2 % (36.0-66.0); PLATELET COUNT, AUTOMATED 198 10^3/uL (150-450); RED BLOOD COUNT 4.56 10^6/uL (4.30-6.10); WHITE BLOOD COUNT 6.4 10^3/uL (4.0-10.0)
[2024-05-15 18:33] LABS: ALBUMIN 3.7 G/DL (3.2-5.2); ALKALINE PHOSPHATASE 58 U/L (40-129); ALT/SGPT 18 U/L (7.0-40); AST/SGOT 14 U/L (<34); BILIRUBIN,TOTAL 0.7 MG/DL (0.3-1.2); BLOOD UREA NITROGEN 31 MG/DL (9-23); CALCIUM LEVEL 9.6 MG/DL (8.3-10.6); CARBON DIOXIDE LEVEL 27 MMOL/L (20-31); CHLORIDE LEVEL 103 MMOL/L (98-107); CREATININE FOR GFR 1.13 MG/DL (0.70-1.30); GLOMERULAR FILTRATION RATE > 60.0 (>42); GLUCOSE, FASTING 95 MG/DL (74-106); POTASSIUM SERUM 3.8 MMOL/L (3.5-5.1); PROSTATIC SPECIFIC AG MONITOR 1.98 NG/ML (< 4.00); SODIUM LEVEL 138 MMOL/L (136-145); TOTAL PROTEIN 6.9 G/DL (5.7-8.2)
== END ==
LOC: M LABDRAWC 16:48 → M LAB REF 16:48
PROVIDERS: ATTEND Internal Medicine Medical Oncology
DX: C61 Malignant neoplasm of prostate (principal)

== ENCOUNTER → 2024-06-11 | Outpatient (REF) | payer MEDICARE ==
[2024-06-11 13:40] LABS: BASO % 0.3 % (0.0-1.0); EOS % 0.5 % (0.0-3.0); HEMATOCRIT 40.5 % (42.0-52.0); HEMOGLOBIN 13.5 g/dl (13.5-17.5); LYMPH % 15.8 % (24.0-44.0); MEAN CORPUSCULAR HEMOGLOBIN 30.7 pg (27.0-33.0); MEAN CORPUSCULAR HGB CONC 33.3 g/dl (32.0-36.5); MONO # 0.4 10^3/uL (0.0-0.8); MONO % 6.1 % (2.0-8.0); NEUTROPHILS # 4.7 10^3/uL (1.5-8.5); PLATELET COUNT, AUTOMATED 197 10^3/uL (150-450); WHITE BLOOD COUNT 6.1 10^3/uL (4.0-10.0)
[2024-06-11 14:04] LABS: PROSTATIC SPECIFIC AG MONITOR 2.63 NG/ML (< 4.00)
[2024-06-11 14:08] LABS: ALBUMIN 3.5 G/DL (3.2-5.2); BILIRUBIN,TOTAL 0.7 MG/DL (0.3-1.2); CALCIUM LEVEL 8.8 MG/DL (8.3-10.6); CREATININE FOR GFR 1.28 MG/DL (0.70-1.30); POTASSIUM SERUM 3.8 MMOL/L (3.5-5.1); TOTAL PROTEIN 6.6 G/DL (5.7-8.2)
== END ==
LOC: M LABDRAWC 10:19
PROVIDERS: ATTEND Internal Medicine Medical Oncology
DX: C61 Malignant neoplasm of prostate (principal)

== ENCOUNTER → 2024-07-08 | Outpatient (REF) | payer MEDICARE ==
[2024-07-08 12:51] LABS: ALBUMIN 3.9 G/DL (3.2-5.2); BILIRUBIN,TOTAL 0.8 MG/DL (0.3-1.2); CALCIUM LEVEL 9.2 MG/DL (8.3-10.6); CREATININE FOR GFR 1.16 MG/DL (0.70-1.30); GLOMERULAR FILTRATION RATE 67.3 (>42); POTASSIUM SERUM 3.4 MMOL/L (3.5-5.1); PROSTATIC SPECIFIC AG MONITOR 2.41 NG/ML (< 4.00); TOTAL PROTEIN 6.8 G/DL (5.7-8.2)
[2024-07-08 12:53] LABS: BASO % 0.4 % (0.0-1.0); EOS % 0.6 % (0.0-3.0); HEMATOCRIT 41.8 % (42.0-52.0); HEMOGLOBIN 13.7 g/dl (13.5-17.5); LYMPH # 1.1 10^3/uL (1.5-5.0); LYMPH % 16.9 % (24.0-44.0); MEAN CORPUSCULAR HEMOGLOBIN 29.7 pg (27.0-33.0); MEAN CORPUSCULAR HGB CONC 32.8 g/dl (32.0-36.5); MEAN CORPUSCULAR VOLUME 90.7 fl (80.0-96.0); MONO # 0.4 10^3/uL (0.0-0.8); MONO % 6.3 % (2.0-8.0); NEUTROPHILS # 5.1 10^3/uL (1.5-8.5); NEUTROPHILS % 75.7 % (36.0-66.0); RED BLOOD COUNT 4.61 10^6/uL (4.30-6.10); WHITE BLOOD COUNT 6.7 10^3/uL (4.0-10.0)
[2024-07-08 13:42] LABS: PLATELET COUNT, AUTOMATED 201 10^3/uL (150-450)
== END ==
LOC: M LABDRAWC 12:14
PROVIDERS: ATTEND Internal Medicine Medical Oncology
DX: C61 Malignant neoplasm of prostate (principal)

== ENCOUNTER → 2024-08-06 | Outpatient (REF) | payer MEDICARE ==
[2024-08-06 13:12] LABS: BASO % 0.5 % (0.0-1.0); EOS % 0.5 % (0.0-3.0); HEMATOCRIT 39.1 % (42.0-52.0); HEMOGLOBIN 13.1 g/dl (13.5-17.5); LYMPH # 1.2 10^3/uL (1.5-5.0); MEAN CORPUSCULAR HEMOGLOBIN 30.6 pg (27.0-33.0); MEAN CORPUSCULAR HGB CONC 33.5 g/dl (32.0-36.5); MEAN CORPUSCULAR VOLUME 91.4 fl (80.0-96.0); MONO # 0.5 10^3/uL (0.0-0.8); MONO % 7.8 % (2.0-8.0); NEUTROPHILS # 4.6 10^3/uL (1.5-8.5); PLATELET COUNT, AUTOMATED 197 10^3/uL (150-450); RED BLOOD COUNT 4.28 10^6/uL (4.30-6.10); WHITE BLOOD COUNT 6.3 10^3/uL (4.0-10.0)
[2024-08-06 13:31] LABS: PROSTATIC SPECIFIC AG MONITOR 2.19 NG/ML (< 4.00)
[2024-08-06 13:34] LABS: ALBUMIN 3.5 G/DL (3.2-5.2); BILIRUBIN,TOTAL 0.8 MG/DL (0.3-1.2); CALCIUM LEVEL 9.2 MG/DL (8.3-10.6); CREATININE FOR GFR 1.28 MG/DL (0.70-1.30); GLOMERULAR FILTRATION RATE 59.8 (>42); POTASSIUM SERUM 3.5 MMOL/L (3.5-5.1); TOTAL PROTEIN 6.6 G/DL (5.7-8.2)
== END ==
LOC: M LABDRAWC 10:00
PROVIDERS: ATTEND Internal Medicine Medical Oncology
DX: C61 Malignant neoplasm of prostate (principal)

== ENCOUNTER → 2024-10-01 | Outpatient (REF) | payer MEDICARE ==
[~2024-10-01] MED LIST changes: +ABIR500T PO; +PRED5PAK PO; +SUPE600T4 PO; +[UNRECOGNIZED DRUG - REMARK]
[2024-10-01 18:30] LABS: BASO # 0.0 10^3/uL (0.0-0.2); BASO % 0.3 % (0.0-1.0); EOS # 0.0 10^3/uL (0.0-0.5); EOS % 0.3 % (0.0-3.0); LYMPH # 1.1 10^3/uL (1.5-5.0); LYMPH % 12.0 % (24.0-44.0); MONO # 0.6 10^3/uL (0.0-0.8); MONO % 6.6 % (2.0-8.0); NEUTROPHILS # 7.5 10^3/uL (1.5-8.5); NEUTROPHILS % 80.4 % (36.0-66.0); PLATELET COUNT, AUTOMATED 212 10^3/uL (150-450)
[2024-10-01 18:57] LABS: PROSTATIC SPECIFIC AG MONITOR 1.91 NG/ML (< 4.00)
[2024-10-01 19:01] LABS: ALT/SGPT 21 U/L (7.0-40); AST/SGOT 21 U/L (<34); CALCIUM LEVEL 9.4 MG/DL (8.3-10.6); CARBON DIOXIDE LEVEL 24 MMOL/L (20-31); CHLORIDE LEVEL 105 MMOL/L (98-107); CREATININE FOR GFR 1.35 MG/DL (0.70-1.30); GLOMERULAR FILTRATION RATE 56.1 (>42); POTASSIUM SERUM 3.8 MMOL/L (3.5-5.1); SODIUM LEVEL 142 MMOL/L (136-145)
[2024-10-01 19:03] LABS: TESTOSTERONE < 7 NG/DL (241-827)
== END ==
LOC: M LABDRAWC 17:10
PROVIDERS: ATTEND Internal Medicine Medical Oncology
DX: C61 Malignant neoplasm of prostate (principal)

== ENCOUNTER → 2024-10-28 | Outpatient (REF) | payer MEDICARE ==
[2024-10-28 13:44] LABS: ALT/SGPT 25 U/L (7.0-40); AST/SGOT 23 U/L (<34); CALCIUM LEVEL 9.3 MG/DL (8.3-10.6); CARBON DIOXIDE LEVEL 28 MMOL/L (20-31); CHLORIDE LEVEL 101 MMOL/L (98-107); CREATININE FOR GFR 1.32 MG/DL (0.70-1.30); GLOMERULAR FILTRATION RATE 57.7 (>42); POTASSIUM SERUM 3.3 MMOL/L (3.5-5.1); SODIUM LEVEL 139 MMOL/L (136-145)
[2024-10-28 13:45] LABS: PROSTATIC SPECIFIC AG MONITOR 1.73 NG/ML (< 4.00)
[2024-10-28 13:49] LABS: BASO # 0.1 10^3/uL (0.0-0.2); BASO % 0.9 % (0.0-1.0); EOS # 0.1 10^3/uL (0.0-0.5); EOS % 0.9 % (0.0-3.0); LYMPH # 1.2 10^3/uL (1.5-5.0); LYMPH % 20.8 % (24.0-44.0); MONO # 0.4 10^3/uL (0.0-0.8); MONO % 6.6 % (2.0-8.0); NEUTROPHILS # 4.1 10^3/uL (1.5-8.5); NEUTROPHILS % 70.5 % (36.0-66.0); PLATELET COUNT, AUTOMATED 240 10^3/uL (150-450)
[2024-10-28 13:51] LABS: TESTOSTERONE < 7 NG/DL (241-827)
== END ==
LOC: M LABDRAWC 12:17
PROVIDERS: ATTEND Internal Medicine Medical Oncology
DX: C61 Malignant neoplasm of prostate (principal)

== ENCOUNTER → 2024-11-25 | Outpatient (REF) | payer MEDICARE ==
[2024-11-25 18:16] LABS: BASO # 0.0 10^3/uL (0.0-0.2); BASO % 0.4 % (0.0-1.0); EOS # 0.0 10^3/uL (0.0-0.5); EOS % 0.4 % (0.0-3.0); LYMPH # 1.4 10^3/uL (1.5-5.0); LYMPH % 19.5 % (24.0-44.0); MONO # 0.5 10^3/uL (0.0-0.8); MONO % 6.8 % (2.0-8.0); NEUTROPHILS # 5.1 10^3/uL (1.5-8.5); NEUTROPHILS % 72.6 % (36.0-66.0); PLATELET COUNT, AUTOMATED 210 10^3/uL (150-450)
[2024-11-25 18:25] LABS: ALT/SGPT 18 U/L (7.0-40); AST/SGOT 17 U/L (<34); CALCIUM LEVEL 9.3 MG/DL (8.3-10.6); CARBON DIOXIDE LEVEL 27 MMOL/L (20-31); CHLORIDE LEVEL 101 MMOL/L (98-107); CREATININE FOR GFR 1.33 MG/DL (0.70-1.30); GLOMERULAR FILTRATION RATE 57.2 (>42); POTASSIUM SERUM 3.8 MMOL/L (3.5-5.1); PROSTATIC SPECIFIC AG MONITOR 1.46 NG/ML (< 4.00); SODIUM LEVEL 139 MMOL/L (136-145)
[2024-11-25 18:35] LABS: TESTOSTERONE < 7 NG/DL (241-827)
== END ==
LOC: M LABDRAWC 17:35
PROVIDERS: ATTEND Internal Medicine Medical Oncology
DX: C61 Malignant neoplasm of prostate (principal)

== ENCOUNTER → 2024-12-23 | Outpatient (REF) | payer MEDICARE ==
[2024-12-23 18:24] LABS: BASO # 0.0 10^3/uL (0.0-0.2); BASO % 0.6 % (0.0-1.0); EOS # 0.1 10^3/uL (0.0-0.5); EOS % 1.2 % (0.0-3.0); LYMPH # 1.5 10^3/uL (1.5-5.0); LYMPH % 22.5 % (24.0-44.0); MONO # 0.5 10^3/uL (0.0-0.8); MONO % 8.1 % (2.0-8.0); NEUTROPHILS # 4.5 10^3/uL (1.5-8.5); NEUTROPHILS % 67.3 % (36.0-66.0); PLATELET COUNT, AUTOMATED 202 10^3/uL (150-450)
[2024-12-23 18:27] LABS: PROSTATIC SPECIFIC AG MONITOR 1.67 NG/ML (< 4.00)
[2024-12-23 18:30] LABS: ALT/SGPT 19 U/L (7.0-40); AST/SGOT 18 U/L (<34); CALCIUM LEVEL 9.1 MG/DL (8.3-10.6); CARBON DIOXIDE LEVEL 27 MMOL/L (20-31); CHLORIDE LEVEL 105 MMOL/L (98-107); CREATININE FOR GFR 1.39 MG/DL (0.70-1.30); GLOMERULAR FILTRATION RATE 54.2 (>42); POTASSIUM SERUM 3.8 MMOL/L (3.5-5.1); SODIUM LEVEL 137 MMOL/L (136-145)
[2024-12-23 18:34] LABS: TESTOSTERONE < 7 NG/DL (241-827)
== END ==
LOC: M LABDRAWC 17:21
PROVIDERS: ATTEND Internal Medicine Medical Oncology
DX: C61 Malignant neoplasm of prostate (principal)

== ENCOUNTER → 2025-01-20 | Outpatient (CLI) | payer MEDICARE ==
[2025-01-20 18:33] LABS: PROSTATIC SPECIFIC AG MONITOR 1.39 NG/ML (< 4.00)
[2025-01-20 18:41] LABS: ALT/SGPT 18 U/L (7.0-40); AST/SGOT 18 U/L (<34); CALCIUM LEVEL 9.9 MG/DL (8.3-10.6); CARBON DIOXIDE LEVEL 27 MMOL/L (20-31); CHLORIDE LEVEL 104 MMOL/L (98-107); CREATININE FOR GFR 1.46 MG/DL (0.70-1.30); GLOMERULAR FILTRATION RATE 51.1 (>42); POTASSIUM SERUM 3.7 MMOL/L (3.5-5.1); SODIUM LEVEL 142 MMOL/L (136-145)
[2025-01-20 18:42] LABS: TESTOSTERONE < 7 NG/DL (241-827)
[2025-01-20 18:50] LABS: PLATELET COUNT, AUTOMATED 212 10^3/uL (150-450)
== END ==
LOC: M LABDRAWC 13:53
PROVIDERS: ATTEND Internal Medicine Medical Oncology
DX: C61 Malignant neoplasm of prostate (principal)

== ENCOUNTER → 2025-02-13 | Outpatient (CLI) | payer MEDICARE ==
[2025-02-13 18:49] LABS: PROSTATIC SPECIFIC AG MONITOR 1.73 NG/ML (< 4.00)
[2025-02-13 18:52] LABS: ALT/SGPT 22 U/L (7.0-40); AST/SGOT 16 U/L (<34); CALCIUM LEVEL 9.0 MG/DL (8.3-10.6); CARBON DIOXIDE LEVEL 26 MMOL/L (20-31); CHLORIDE LEVEL 106 MMOL/L (98-107); CREATININE FOR GFR 1.55 MG/DL (0.70-1.30); GLOMERULAR FILTRATION RATE 47.6 (>42); POTASSIUM SERUM 4.1 MMOL/L (3.5-5.1); SODIUM LEVEL 142 MMOL/L (136-145)
[2025-02-13 18:58] LABS: TESTOSTERONE < 7 NG/DL (241-827)
[2025-02-13 19:07] LABS: BASO # 0.0 10^3/uL (0.0-0.2); BASO % 0.6 % (0.0-1.0); EOS # 0.1 10^3/uL (0.0-0.5); EOS % 0.8 % (0.0-3.0); LYMPH # 1.4 10^3/uL (1.5-5.0); LYMPH % 21.2 % (24.0-44.0); MONO # 0.6 10^3/uL (0.0-0.8); MONO % 9.7 % (2.0-8.0); NEUTROPHILS # 4.3 10^3/uL (1.5-8.5); NEUTROPHILS % 67.4 % (36.0-66.0); PLATELET COUNT, AUTOMATED 217 10^3/uL (150-450)
== END ==
LOC: M LABDRAWC 13:44
PROVIDERS: ATTEND Internal Medicine Medical Oncology
DX: C61 Malignant neoplasm of prostate (principal)

== ENCOUNTER → 2025-03-13 | Outpatient (REF) | payer MEDICARE ==
[2025-03-13 18:09] LABS: BASO # 0.0 10^3/uL (0.0-0.2); BASO % 0.6 % (0.0-1.0); EOS # 0.0 10^3/uL (0.0-0.5); EOS % 0.4 % (0.0-3.0); LYMPH # 1.1 10^3/uL (1.5-5.0); LYMPH % 15.6 % (24.0-44.0); MONO # 0.5 10^3/uL (0.0-0.8); MONO % 7.2 % (2.0-8.0); NEUTROPHILS # 5.4 10^3/uL (1.5-8.5); NEUTROPHILS % 76.1 % (36.0-66.0); PLATELET COUNT, AUTOMATED 209 10^3/uL (150-450)
[2025-03-13 18:10] LABS: ALT/SGPT 21 U/L (7.0-40); AST/SGOT 17 U/L (<34); CALCIUM LEVEL 9.1 MG/DL (8.3-10.6); CARBON DIOXIDE LEVEL 28 MMOL/L (20-31); CHLORIDE LEVEL 103 MMOL/L (98-107); CREATININE FOR GFR 1.59 MG/DL (0.70-1.30); GLOMERULAR FILTRATION RATE 46.1 (>42); POTASSIUM SERUM 3.8 MMOL/L (3.5-5.1); PROSTATIC SPECIFIC AG MONITOR 1.67 NG/ML (< 4.00); SODIUM LEVEL 141 MMOL/L (136-145)
[2025-03-13 18:13] LABS: TESTOSTERONE < 7 NG/DL (241-827)
== END ==
LOC: M LABDRAWC 17:21
DX: C61 Malignant neoplasm of prostate (principal)